=== PATIENT | male | born 1975 | race Caucasian/White ===

== ENCOUNTER → 2025-02-26 17:30 | Outpatient (REF) | payer OTHER, SELFPAY | LOC: MRI 17:30 | PROVIDERS: ATTENDING PHYSICIAN Specialist; FAMILY PHYSICIAN Family Medicine | DX: Q61.3 Polycystic kidney, unspecified (principal) | CPT/HCPCS: 74183; A9575 ==

== ENCOUNTER 2025-04-17 06:19 | Day surgery (SDC) | payer OTHER, SELFPAY | END 2025-04-17 10:53 | disposition home or self-care (01) | LOC: GI 06:19 | PROVIDERS: ATTENDING PHYSICIAN Internal Medicine Gastroenterology | DX: Z12.11 Encounter for screening for malignant neoplasm of colon (principal); D12.0 Benign neoplasm of cecum; D12.2 Benign neoplasm of ascending colon; D12.3 Benign neoplasm of transverse colon; D12.4 Benign neoplasm of descending colon; D12.5 Benign neoplasm of sigmoid colon; K57.30 Diverticulosis of large intestine without perforation or abscess without bleeding; D12.8 Benign neoplasm of rectum; K62.1 Rectal polyp; K64.8 Other hemorrhoids | CPT/HCPCS: 45385; 45381; 88305 ==